=== PATIENT | female | born 1995 | race Caucasian/White ===

== ENCOUNTER 2020-09-29 09:46 | Emergency (ER) | payer OTHER ==
[2020-09-29 09:52] VITALS: BP 143/88; PULSE 86; RESP 18; TEMP 97.7
[2020-09-29] MEDS ORDERED: SODIUM CHLORIDE 0.9% 1,000 ML IV STA (10:29)
[2020-09-29] MEDS ORDERED: ALPRAZolam 0.25 MG TAB PO STA (10:30)
[2020-09-29 10:59] LABS: Basophils % (A) 1 %; Eosinophils # (A) 0.1 k/uL (0-0.7); Eosinophils % (A) 2 %; HCT 39.5 % (34.0-46.0); HGB 13.3 gm/dL (11.4-16.0); Lymphocytes # (A) 1.7 k/uL (1.0-4.8); Lymphocytes % (A) 38 %; MCH 28.4 pg (25.0-35.0); MCHC 33.7 g/dL (31.0-37.0); MCV 84.3 fL (80.0-100.0); Mean Platelet Volume 8.4; Monocytes # (A) 0.2 k/uL (0-1.0); Monocytes % (A) 5 %; Neutrophils # (A) 2.3 k/uL (1.3-7.7); Neutrophils % (A) 52 %; Platelet Count 186 k/uL (150-450); RBC 4.69 m/uL (3.80-5.40); RDW 12.2 % (11.5-15.5); WBC 4.4 k/uL (3.8-10.6)
[2020-09-29 11:10] LABS: ALT 12 U/L (4-34); African American GFR (CKD) >90 (>60 ml/min/1.73 sqM); Anion Gap 9 mmol/L; Blood Urea Nitrogen 11 mg/dL (7-17); Calcium 9.5 mg/dL (8.4-10.2); Carbon Dioxide 22 mmol/L (22-30); Chloride 108 mmol/L (98-107); Glucose 91 mg/dL (74-99); Non-African American GFR(CKD) >90 (>60 ml/min/1.73 sqM); Sodium 139 mmol/L (137-145); Total Bilirubin 0.7 mg/dL (0.2-1.3)
[2020-09-29 11:14] LABS: AST 30 U/L (14-36); Albumin 4.7 g/dL (3.5-5.0); Alkaline Phosphatase 37 U/L (38-126); Potassium 4.4 mmol/L (3.5-5.1)
--- NOTE | 2020-09-29 11:59 | ED ---
General Adult HPI - General Chief complaint: Shortness of Breath Stated complaint: SOB/weak/feel like passing out Time Seen by Provider: 09/29/20 10:03 Source: patient Mode of arrival: ambulatory Limitations: no limitations - History of Present Illness Initial comments: Patient is a 25-year-old female with history of anxiety, presenting to the emergency Department with complaints of having a near-syncope episode just tired to arrival. Patient states that she had the [employer] vaccine about 2 weeks ago just before it was pulled from the shelves. She feels like this might have triggered her anxiety. She states over the past week she has been having some shakiness. She states today on her way to work she felt like the shakiness was worse, she started to become lightheaded at work so she went outside and then felt short of breath, felt like her throat was closing up. She states she called her friend to take her up to the ER. She denies any chest pain. She still feels shaky at this time. She states the last week or 2 she's been having intermittent abdominal cramping after she eats, some mild nausea but no vomiting, no diarrhea. She denies any fevers or chills, no chest pains, no shortness of breath at this time. She states she does not take anything for her anxiety. She is fearful that something else is going on. She denies being . She has no further complaints at this time. Upon arrival to the ER, her vital signs are stable. - Related Data Home Medications Medication Instructions Recorded Confirmed [id number] 2 tab PO Q4HR PRN 09/29/20 09/29/20 [Excedrin] Norg-Ee 1 tab PO HS 09/29/20 09/29/20 Allergies Allergy/AdvReac Type Severity Reaction Status Date / Time No Known Allergies Allergy Verified 09/29/20 11:22 Review of Systems ROS Statement: Those systems with pertinent positive or pertinent negative responses have been documented in the HPI. ROS Other: All systems not noted in ROS Statement are negative. Past Medical History Past Medical History: No Reported History History of Any Multi-Drug Resistant Organisms: None Reported Past Surgical History: No Surgical Hx Reported Past Psychological History: Anxiety Smoking Status: Never smoker Past Alcohol Use History: Occasional Past Drug Use History: None Reported General Exam - General Exam Comments Initial Comments: GENERAL: Patient is well-developed and well-nourished. Patient is nontoxic and in no acute distress, does appear very anxious. HEAD: Atraumatic, normocephalic. EYES: Pupils equal round and reactive to light, extraocular movements intact, sclera anicteric, conjunctiva are normal. Eyelids were unremarkable. ENT: TMs normal, nares patent, oropharynx clear without exudates. Moist mucous membranes. NECK: Normal range of motion, supple without lymphadenopathy or JVD. LUNGS: Unlabored respirations. Breath sounds clear to auscultation bilaterally and equal. No wheezes rales or rhonchi. HEART: Regular rate and rhythm without murmurs, rubs or gallops. ABDOMEN: Soft, nontender, normoactive bowel sounds. No guarding, no rebound. No masses appreciated. : Deferred MUSCULOSKELETAL: Normal extremities with adequate strength and normal range of motion, no pitting or edema. No clubbing or cyanosis. NEUROLOGICAL: Patient is alert and oriented x 3. Motor and sensory are also intact. Cranial nerves II through XII grossly intact. Symmetrical smile. Normal speech, normal gait. PSYCH: Normal mood, normal affect. SKIN: Warm, Dry, normal turgor, no rashes or lesions noted. Limitations: no limitations Course Vital Signs 09/29/20 09:49 Temperature 97.7 F Pulse Rate 86 Respiratory 18 Rate Blood Pressure 143/88 O2 Sat by Pulse 100 Oximetry EKG Findings - EKG Comments: EKG Findings:: Normal sinus rhythm with sinus arrhythmia, no signs of acute ischemia. Ventricular rate 76, GA interval 112, QTC 406. Medical Decision Making - Medical Decision Making Patient is a 25-year-old female presenting with anxiety type symptoms that increased today. She states the symptoms have been going on for about 2 weeks, progressively getting worse after she found out the [employer] vaccine was pulled from the shelves and she had just received this. Her vital signs are stable today, EKG shows no acute process. Her lab work is unremarkable. I discussed these findings with the patient, this is most likely anxiety. I recommended following up with her PCP regarding her anxiety and further treatment. Return parameters were discussed with the patient she verbalized understanding. She is stable for discharge and she is in agreement with this plan of care. Case discussed with Dr. Knowles. - Lab Data Result diagrams: 09/29/20 10:44 09/29/20 10:44 Lab Results 09/29/20 09/29/20 Range/Units 10:44 10:44 WBC 4.4 (3.8-10.6) k/uL RBC 4.69 (3.80-5.40) m/uL Hgb 13.3 (11.4-16.0) gm/dL Hct 39.5 (34.0-46.0) % MCV 84.3 (80.0-100.0) fL MCH 28.4 (25.0-35.0) pg MCHC 33.7 (31.0-37.0) g/dL RDW 12.2 (11.5-15.5) % Plt Count 186 (150-450) k/uL MPV 8.4 Neutrophils % 52 % Lymphocytes % 38 % Monocytes % 5 % Eosinophils % 2 % Basophils % 1 % Neutrophils # 2.3 (1.3-7.7) k/uL Lymphocytes # 1.7 (1.0-4.8) k/uL Monocytes # 0.2 (0-1.0) k/uL Eosinophils # 0.1 (0-0.7) k/uL Basophils # 0.0 (0-0.2) k/uL Sodium 139 (137-145) mmol/L Potassium 4.4 (3.5-5.1) mmol/L Chloride 108 H (98-107) mmol/L Carbon Dioxide 22 (22-30) mmol/L Anion Gap 9 mmol/L BUN 11 (7-17) mg/dL Creatinine 0.72 (0.52-1.04) mg/dL Est GFR (CKD-EPI)AfAm >90 (>60 ml/min/1.73 sqM) Est GFR (CKD-EPI)NonAf >90 (>60 ml/min/1.73 sqM) Glucose 91 (74-99) mg/dL Calcium 9.5 (8.4-10.2) mg/dL Total Bilirubin 0.7 (0.2-1.3) mg/dL AST 30 (14-36) U/L ALT 12 (4-34) U/L Alkaline Phosphatase 37 L (38-126) U/L Total Protein 8.0 (6.3-8.2) g/dL Albumin 4.7 (3.5-5.0) g/dL Disposition Clinical Impression: Anxiety Disposition: HOME SELF-CARE Condition: Stable Instructions (If sedation given, give patient instructions): Anxiety (ED) Additional Instructions: Please return to the Emergency Department if symptoms worsen or any other concerns. Recommend following up with your PCP regarding anxiety. Is patient prescribed a controlled substance at d/c from ED?: No Referrals: Jason Lai MD [Primary Care Provider] - 1-2 days Time of Disposition: 11:59
== END 2020-09-29 12:16 | disposition home or self-care (01) ==
LOC: EC 09:46
DX: F41.9 Anxiety disorder, unspecified (principal)
CPT/HCPCS: 36415; 80053; 85025; 93005; 99285